=== PATIENT | female | born 1995 | race Caucasian/White ===

== ENCOUNTER → 2017-06-09 | Outpatient (CLI) | payer OTHER, SELFPAY | LOC: M SMT 08:49 | DX: Z34.83 Encounter for supervision of other normal pregnancy, third trimester (principal) | CPT/HCPCS: 86803 ==

== ENCOUNTER → 2017-06-23 | Outpatient (REF) | payer OTHER, SELFPAY ==
[2017-06-23 16:28] LABS: CHLAMYDIA DNA AMPLIFICATION NEGATIVE (NEGATIVE); GC DNA AMPLIFICATION NEGATIVE (NEGATIVE)
== END ==
LOC: M LAB REF 14:02
DX: Z34.83 Encounter for supervision of other normal pregnancy, third trimester (principal)
CPT/HCPCS: 87591

== ENCOUNTER → 2017-07-08 | Outpatient (REF) | payer OTHER | LOC: M LAB REF 13:21 | DX: Z34.83 Encounter for supervision of other normal pregnancy, third trimester (principal) ==

== ENCOUNTER 2017-08-01 10:17 | Inpatient (IN) | payer OTHER ==
[2017-08-01] MEDS: PRENATAL VITAMINS CHEWABLE TABLET PO (09:00)
[2017-08-01 11:34] LABS: HEMATOCRIT 36.2 % (36.0-47.0); HEMOGLOBIN 12.4 g/dl (12.0-16.0); MEAN CORPUSCULAR HEMOGLOBIN 29.2 pg (27.0-33.0); MEAN CORPUSCULAR HGB CONC 34.3 g/dl (32.0-36.5); MEAN CORPUSCULAR VOLUME 85.4 fl (80.0-96.0); PLATELET COUNT, AUTOMATED 215 10^3/uL (150-450); RED BLOOD COUNT 4.24 10^6/uL (4.00-5.40); RED CELL DISTRIBUTION WIDTH 13.2 % (11.5-14.5); WHITE BLOOD COUNT 16.5 10^3/uL (4.0-10.0)
[2017-08-01] MEDS ORDERED: FENTANYL 2MCG/ML ROPIVACAINE 0.2% IN 0.9% NACL 200ML IVBAG As Ordered (11:39)
[2017-08-01 12:51] LABS: HBSAG L&D NEGATIVE (NEGATIVE)
[2017-08-01] MEDS ORDERED: OXYTOCIN 30 UNITS IN 0.9% NaCl 500ML IV BAG (J2590) As Ordered (13:30)
[2017-08-01] MEDS ORDERED: EPIDURAL/PCA KEYS XX (14:00)
[2017-08-01] MEDS ORDERED: ePHEDrine SULFATE 25 MG/5 ML(5MG/ML) SYRINGE IV (14:00)
[2017-08-01] MEDS ORDERED: EPIDURAL COMMENT XX (14:00)
[2017-08-01] MEDS ORDERED: NALOXONE INJ 0.4 MG/1 ML VIAL (J2310) IV (14:00)
[2017-08-01] MEDS ORDERED: diphenhydrAMINE INJ 50MG/ML VIAL (J1200) IV (14:00)
[2017-08-01] MEDS ORDERED: REFRIGERATOR IV KEYS XX (14:00)
[2017-08-01] MEDS ORDERED: ONDANSETRON 4MG/2ML VIAL (J2405) IV (14:00)
[2017-08-01] MEDS ORDERED: LACTATED RINGER'S 1000 ML IV (14:00)
[2017-08-01] MEDS ORDERED: FENTANYL/ROPIVACAINE/NACL BAG 200 ML EPIDURAL (14:00)
[2017-08-01] MEDS: OXYTOCIN DRIP 30 UNITS in APPROPRIATE DILUENT 1 EA IV (14:44)
[2017-08-01] MEDS ORDERED: PROMETHAZINE 25 MG TAB PO (14:45)
[2017-08-01] MEDS ORDERED: DIBUCAINE 1% OINTMENT 30GM TOP (14:45)
[2017-08-01] MEDS ORDERED: ANUSOL HC CREAM 30GM TOP (14:45)
[2017-08-01] MEDS ORDERED: METHYLERGONOVINE MALEATE 0.2 MG TAB PO (14:45)
[2017-08-01] MEDS ORDERED: DOCUSATE SODIUM 100 MG CAP PO (14:45)
[2017-08-01] MEDS ORDERED: MOM 30ML SUSPENSION UDC PO (14:45)
[2017-08-01] MEDS: IBUPROFEN 800 MG TAB PO (19:32)
[2017-08-02] MEDS: ACETAMINOPHEN 500 MG TAB PO ×2 (02:17→19:19)
[2017-08-02] MEDS: MEASLES,MUMPS,RUBELLA VACCINE INJ (MMR-II) (90707) SC (03:10)
[2017-08-02] MEDS: RHOGAM 300 MCG (1500 IU) INJ (J2790) IM (03:10)
[2017-08-02] MEDS: IBUPROFEN 800 MG TAB PO ×3 (03:43→21:34)
[2017-08-02] MEDS: PRENATAL VITAMINS CHEWABLE TABLET PO (08:11)
[2017-08-03] MEDS: ACETAMINOPHEN 500 MG TAB PO (02:35)
[2017-08-03] MEDS: IBUPROFEN 800 MG TAB PO (05:43)
[2017-08-03] MEDS: PRENATAL VITAMINS CHEWABLE TABLET PO (07:37)
== END 2017-08-03 10:20 | disposition home or self-care (01) | DRG 775 ==
LOC: M LDI 10:17 → M OBS 17:25
PROVIDERS: Obstetrics & Gynecology
PROC: 10E0XZZ Delivery of Products of Conception, External Approach (ICD-10-PCS; principal; 2017-08-01)
DX: O80 Encounter for full-term uncomplicated delivery (principal); Z3A.39 39 weeks gestation of pregnancy; Z37.0 Single live birth

== ENCOUNTER → 2018-04-13 | Outpatient (CLI) | payer OTHER ==
[2018-04-13 14:02] LABS: BASO % 0.5 % (0.0-1.0); EOS # 0.1 10^3/uL (0.0-0.50); EOS % 0.9 % (0.0-3.0); HEMATOCRIT 41.4 % (36.0-47.0); HEMOGLOBIN 14.2 g/dl (12.0-15.5); IMMATURE GRANULOCYTE % 0.4 % (0-3.0); LYMPH # 1.6 10^3/uL (1.5-6.5); MEAN CORPUSCULAR HEMOGLOBIN 30.6 pg (27.0-33.0); MEAN CORPUSCULAR HGB CONC 34.3 g/dl (32.0-36.5); MEAN CORPUSCULAR VOLUME 89.2 fl (80.0-96.0); MONO # 0.6 10^3/uL (0.0-0.8); MONO % 6.9 % (0.0-5.0); NEUTROPHILS # 5.8 10^3/uL (1.8-7.7); NEUTROPHILS % 71.3 % (36.0-66.0); PLATELET COUNT, AUTOMATED 221 10^3/uL (150-450); RED BLOOD COUNT 4.64 10^6/uL (4.00-5.40); RED CELL DISTRIBUTION WIDTH 13.3 % (11.5-14.5); WHITE BLOOD COUNT 8.2 10^3/uL (4.0-10.0)
[2018-04-13 16:38] LABS: CHLAMYDIA DNA AMPLIFICATION NEGATIVE (NEGATIVE); GC DNA AMPLIFICATION NEGATIVE (NEGATIVE)
[2018-04-14 10:23] LABS: HBsAg Prenatal NEGATIVE (NEGATIVE); HIV 1&2 SCREEN CENTAUR NEGATIVE (NEGATIVE); RUBELLA IgG QUALITATIVE IMMUNE (IMMUNE)
== END ==
LOC: M SMT 11:18
DX: Z36.89 Encounter for other specified antenatal screening (principal)
CPT/HCPCS: 86762

== ENCOUNTER → 2018-05-25 | Outpatient (REF) | payer OTHER | LOC: M LAB REF 16:59 | DX: Z36.89 Encounter for other specified antenatal screening (principal) | CPT/HCPCS: 87086 ==

== ENCOUNTER → 2018-05-29 | Outpatient (CLI) | payer OTHER ==
[~2018-05-29] MED LIST: IBUP-1114 PO; MAPA500T17 PO; PRENTAB9 PO
--- NOTE | 2018-05-30 04:31 | REP ---
Clinical: Anatomical evaluation. Comparison: None . Findings: Examination demonstrates a single live intrauterine in transverse lie (head to maternal left) presentation. motion is identified by technologist. Placenta is noted anterior and grade zero without evidence for placenta previa or abruption. Amniotic fluid volume is normal. Cervix measures 4.7 cm in length and appears closed. No evidence for nuchal cord. Gestational age by LMP 22 weeks 6-day with GREGG is 09/26/2018 . Gestational age by current measurements 18 weeks 3-day with GREGG 10/27/2018 . FHR equals 139 beats per minute. BPD 4.2 cm 18 weeks 5 days HC 15.6 cm 18 weeks 4 days AC 13.3 cm 18 weeks 6 days FL 2.7 cm 18 weeks 2 days HC/AC ratio 1.17 Estimated weight 245 grams ( 50th percentile). Anatomical assessment demonstrates normal structures including cranium, choroid plexus, cavum, cerebellum/posterior fossa, lungs, diaphragm, stomach, cord insertion/three-vessel cord, kidneys/bladder, spine, and extremities. Impression: Single live intrauterine in transverse lie. Limited evaluation of the facial features and heart/ventricular outflow tracts may warrant reevaluation and follow-up. Electronically Signed by Tk Lomas MD 05/30/2018 04:23 A
== END ==
LOC: M RAD 09:43
PROVIDERS: ATTEND Obstetrics & Gynecology
DX: Z36.89 Encounter for other specified antenatal screening (principal); Z3A.18 18 weeks gestation of pregnancy

== ENCOUNTER → 2018-06-26 | Outpatient (CLI) | payer OTHER ==
[~2018-06-26] MED LIST changes: -MAPA500T17 PO; +MAPA500T2 PO
--- NOTE | 2018-06-27 05:16 | REP ---
Clinical: Anatomical evaluation. Comparison: 05/29/2018 . Findings: Examination demonstrates a single live intrauterine in breech presentation. motion is identified by technologist. Placenta is noted anterior and grade there are grade zero without evidence for placenta previa or abruption. Amniotic fluid volume is normal. Cervix measures 4.1 cm in length and appears closed. No evidence for nuchal cord. Gestational age by LMP 22 weeks 3 days with GREGG 10[birth year]27/1989 . Gestational age by current measurements 22 weeks 3 day with GREGG 01/27/2019 . Estimated weight 522 grams ( 53rd percentile). Anatomical assessment demonstrates normal structures including cranium, choroid plexus, cavum, cerebellum/posterior fossa, facial features, lungs, four-chamber heart/ventricular outflow tracts, diaphragm, stomach, cord insertion/three-vessel cord, kidneys/bladder, spine, and extremities. Impression: 1. Single live intrauterine in breech presentation demonstrating appropriate interval growth. 2. Anatomical assessment is complete and normal. No gross abnormalities are identified. Electronically Signed by Tk Lomas MD 06/27/2018 05:08 A
== END ==
LOC: M LRY 07:51
PROVIDERS: ATTEND Advanced Practice Midwife
DX: O32.1XX0 Maternal care for breech presentation, not applicable or unspecified (principal); Z36.89 Encounter for other specified antenatal screening; Z3A.22 22 weeks gestation of pregnancy

== ENCOUNTER → 2018-07-24 | Outpatient (CLI) | payer OTHER ==
[2018-07-24 18:02] LABS: HEMATOCRIT 32.8 % (36.0-47.0); HEMOGLOBIN 10.9 g/dl (12.0-15.5); MEAN CORPUSCULAR HEMOGLOBIN 29.9 pg (27.0-33.0); MEAN CORPUSCULAR HGB CONC 33.2 g/dl (32.0-36.5); MEAN CORPUSCULAR VOLUME 89.9 fl (80.0-96.0); PLATELET COUNT, AUTOMATED 200 10^3/uL (150-450); RED BLOOD COUNT 3.65 10^6/uL (4.00-5.40); WHITE BLOOD COUNT 11.4 10^3/uL (4.0-10.0)
== END ==
LOC: M LRY 10:06
PROVIDERS: ATTEND Obstetrics & Gynecology
DX: Z34.82 Encounter for supervision of other normal pregnancy, second trimester (principal); Z36.89 Encounter for other specified antenatal screening

== ENCOUNTER → 2018-10-03 | Outpatient (REF) | payer OTHER | LOC: M LAB REF 13:14 | PROVIDERS: ATTEND Advanced Practice Midwife | DX: Z34.83 Encounter for supervision of other normal pregnancy, third trimester (principal) ==

== ENCOUNTER → 2018-10-10 | Outpatient (CLI) | payer OTHER ==
[2018-10-10 14:03] LABS: ALT/SGPT 12 U/L (12-78); BILIRUBIN,DIRECT < 0.1 MG/DL (0.0-0.2); BILIRUBIN,TOTAL 0.2 MG/DL (0.2-1.0); TOTAL PROTEIN 6.7 GM/DL (6.4-8.2)
== END ==
LOC: M SMT 11:22
PROVIDERS: ATTEND Advanced Practice Midwife
DX: L29.9 Pruritus, unspecified (principal)

== ENCOUNTER 2018-10-19 08:34 | Inpatient (IN) | payer OTHER ==
[2018-10-19] VITALS (11 sets, daily range): BP systolic 107–130; BP diastolic 55–79
[~2018-10-19] VITALS: Ht 162.6 cm; Wt 80.6 kg
[2018-10-19] MEDS ORDERED: LACTATED RINGER'S 1000 ML IV STA (09:25)
--- NOTE | 2018-10-19 09:40 | HPE ---
DATE OF ADMISSION: 10/19/2018 HISTORY: 22-year-old 2, para 1 female at 38-6/7 weeks gestation by last menstrual period (LMP), consistent with 9 week ultrasound, estimated date of confinement (EDC) 10/17/2018 who presents with regular contractions, increasing in intensity since 3:30 in the morning on the day of admission. She thought she might have leaked a little bit of fluid early that morning but is unsure. She denies vaginal bleeding. COURSE: The patient initiated care at 9 weeks gestation on 03/23/2018. Her blood pressure was 124/74, weight 147 pounds. course was unremarkable. OBSTETRICAL HISTORY: July 2017, 39 weeks, vaginal delivery 7 pound 1 ounce female with no complications. MEDICAL HISTORY: None. SURGICAL HISTORY: None. ALLERGIES: None. SOCIAL HISTORY: Father of the baby is involved. The patient lives at [place]. The patient denies cigarettes, alcohol or drug use. FAMILY HISTORY: Noncontributory. PHYSICAL EXAMINATION: Blood pressure is 117/79, pulse 120, afebrile. She appears mildly uncomfortable. Head and neck exam normal. Lungs clear. Heart regular rate and rhythm. Abdomen gravid. heart tones category 1. Sterile vaginal exam 6 cm, 100%, -1 station, mid position, vertex, intact. Contractions every 3-4 minutes. heart tones category 1. Extremities nontender. LABORATORIES: Blood type A positive. Rubella immune. RPR nonreactive. Hepatitis B and C negative. HIV negative. Group B Streptococcus (GBS) negative on 10/03/2018. ASSESSMENT: 22-year-old G2, P1 at 38-6/7 weeks gestation presents in active labor. PLAN: Patient is admitted on 10/19/2018.
[2018-10-19 09:46] LABS: HEMATOCRIT 43.4 % (36.0-47.0); HEMOGLOBIN 14.6 g/dl (12.0-15.5); MEAN CORPUSCULAR HEMOGLOBIN 31.6 pg (27.0-33.0); MEAN CORPUSCULAR HGB CONC 33.6 g/dl (32.0-36.5); MEAN CORPUSCULAR VOLUME 93.9 fl (80.0-96.0); PLATELET COUNT, AUTOMATED 190 10^3/uL (150-450); RED BLOOD COUNT 4.62 10^6/uL (4.00-5.40); WHITE BLOOD COUNT 11.7 10^3/uL (4.0-10.0)
[2018-10-19] MEDS ORDERED: LR 1,000 ML IV SCH (10:00)
[2018-10-19] MEDS ORDERED: FENTANYL 2MCG/ML ROPIVACAINE 0.2% IN 0.9% NACL 100ML IVBAG As Ordered ONE (10:33)
[2018-10-19] MEDS ORDERED: OXYTOCIN 30 UNITS IN 0.9% NaCl 500ML IV BAG (J2590) As Ordered ONE (10:41)
[2018-10-19] MEDS ORDERED: diphenhydrAMINE INJ 50MG/ML VIAL (J1200) IV PRN (11:15)
[2018-10-19] MEDS ORDERED: LACTATED RINGER'S 1000 ML IV PRN (11:15)
[2018-10-19] MEDS ORDERED: EPIDURAL/PCA KEYS XX PRN (11:15)
[2018-10-19] MEDS ORDERED: FENTANYL/ROPIVACAINE/NACL BAG 100 ML EPIDURAL SCH (11:15)
[2018-10-19] MEDS ORDERED: EPIDURAL COMMENT XX SCH (11:15)
[2018-10-19] MEDS ORDERED: NALOXONE INJ 0.4 MG/1 ML VIAL (J2310) IV PRN (11:15)
[2018-10-19] MEDS ORDERED: ePHEDrine SULFATE 25 MG/5 ML(5MG/ML) SYRINGE IV PRN (11:15)
[2018-10-19] MEDS ORDERED: ONDANSETRON 4MG/2ML VIAL (J2405) IV PRN (11:15)
[2018-10-19] MEDS ORDERED: REFRIGERATOR IV KEYS XX PRN (11:15)
[2018-10-19] MEDS ORDERED: RHOGAM 300 MCG (1500 IU) INJ (J2790) IM SCH (15:00)
[2018-10-19] MEDS ORDERED: PROMETHAZINE 25 MG TAB PO PRN (15:00)
[2018-10-19] MEDS ORDERED: MEASLES,MUMPS,RUBELLA VACCINE INJ (MMR-II) (90707) SC SCH (15:00)
[2018-10-19] MEDS ORDERED: ACETAMINOPHEN 500 MG TAB PO PRN (15:00)
[2018-10-19] MEDS ORDERED: OXYTOCIN DRIP 30 UNITS in APPROPRIATE DILUENT 1 EA IV ONE (15:00)
[2018-10-19] MEDS ORDERED: METHYLERGONOVINE MALEATE 0.2 MG TAB PO PRN (15:00)
[2018-10-19] MEDS ORDERED: DOCUSATE SODIUM 100 MG CAP PO PRN (15:00)
[2018-10-19] MEDS ORDERED: DIBUCAINE 1% OINTMENT 30GM TOP PRN (15:00)
--- NOTE | 2018-10-19 15:15 | DN ---
DATE: 10/19/2018 PREDELIVERY DIAGNOSIS: A 38-6/7 weeks gestation, labor. POSTOPERATIVE DIAGNOSIS: Delivered. PROCEDURE: Spontaneous vaginal delivery. REDEYE GUNNER: Dr. Doni Paul ANESTHESIA: Epidural. ESTIMATED BLOOD LOSS: 300 mL. FINDINGS: A 9-pound 3-ounce male infant, scores 9 and 9. DELIVERY SUMMARY: After a short second stage of approximately 10 minutes, patient had spontaneous delivery of a 9-pound 3-ounce male infant, scores 9 and 9, under epidural anesthesia. There was no nuchal cord. The shoulders delivered with ease. The infant was handed to the mother and cried immediately. The cord was doubly clamped and cut. Placental delivered spontaneously and appeared to be intact. The patient received intravenous (IV) Pitocin immediately after delivery of the placenta. There were no vaginal lacerations present. Sponge counts were correct.
[2018-10-19] MEDS: IBUPROFEN 800 MG TAB PO PRN (23:24)
[2018-10-20 06:00] VITALS: BP 110/62
[2018-10-20] MEDS: PRENATAL VITAMINS CHEWABLE TABLET PO SCH (09:46)
[2018-10-20] MEDS: IBUPROFEN 800 MG TAB PO PRN (13:50)
[2018-10-20 18:01] VITALS: BP 105/60
[2018-10-21 06:00] VITALS: BP 104/69
[2018-10-21] MEDS: PRENATAL VITAMINS CHEWABLE TABLET PO SCH (07:49)
== END 2018-10-21 12:30 | disposition home or self-care (01) | DRG 807 ==
LOC: M LDO 08:34 → M LDI 09:17 → M OBS 17:01
PROVIDERS: ADMIT Specialist; ATTEND Specialist
PROC: 10E0XZZ Delivery of Products of Conception, External Approach (ICD-10-PCS; principal; 2018-10-19)
DX: O80 Encounter for full-term uncomplicated delivery (principal); Z37.0 Single live birth; Z3A.38 38 weeks gestation of pregnancy